=== PATIENT | female | born 1985 | race Two or more races ===

== ENCOUNTER 2018-06-02 19:16 | Emergency (ER) | payer OTHER ==
[~2018-06-02] VITALS: Ht 162.6 cm; Wt 86.2 kg
[2018-06-02 20:33] VITALS: BP 162/97
[2018-06-02 20:42] LABS: BASO % 0 % (0-3); EOS # 0.3 x10^3/uL (0.0-0.7); EOS % 2 % (0-3); HEMATOCRIT 42.7 % (36.0-47.0); HEMOGLOBIN 14.4 g/dL (12.0-15.5); LYMPH # 3.4 x10^3/uL (1.0-4.8); LYMPH % 29 % (24-48); MEAN CORPUSCULAR HEMOGLOBIN 30 pg (25-35); MEAN CORPUSCULAR HGB CONC 34 g/dL (31-37); MEAN CORPUSCULAR VOLUME 88 fL (79-100); MONO # 0.8 x10^3/uL (0.0-1.1); MONO % 7 % (0-9); NEUT # 7.4 x10^3uL (1.8-7.7); NEUT % 62 % (31-73); PLATELET COUNT 482 x10^3/uL (140-400); RED BLOOD COUNT 4.84 x10^6/uL (3.50-5.40); RED CELL DISTRIBUTION WIDTH 12.7 % (11.5-14.5); WHITE BLOOD COUNT 11.9 x10^3/uL (4.0-11.0)
[2018-06-02 20:54] LABS: CALCIUM 9.3 mg/dL (8.5-10.1); CREATININE 0.5 mg/dL (0.6-1.0); GFR 144.9; POTASSIUM 3.2 mmol/L (3.5-5.1)
[2018-06-02 21:00] LABS: ALBUMIN 4.3 g/dL (3.4-5.0); ALBUMIN/GLOBULIN RATIO 1.1 (1.0-1.7); TOTAL BILIRUBIN 0.4 mg/dL (0.2-1.0); TOTAL PROTEIN 8.3 g/dL (6.4-8.2)
--- NOTE | 2018-06-02 21:39 | RAD ---
CHEST AP ONLY Clinical History: CHEST PAIN Technique: AP view of the chest was obtained at 06/02/2018 9:12 PM. Comparison: None. Findings: The cardiomediastinal silhouette is normal. The pulmonary vasculature is normal. The lungs and pleural margins are clear. Impression: No evidence of an acute cardiopulmonary process. Electronically signed by: Toby Green III, MD (06/02/2018 9:36 PM) [id number]
[2018-06-02] MEDS ORDERED: TRIA1CAP PO (21:42)
--- NOTE | 2018-06-02 21:42 | PHYS DOC ---
Past Medical History Past Medical History: Hypertension Past Surgical History: No Surgical History Alcohol Use: Occasionally Drug Use: None Adult General Chief Complaint Chief Complaint: MULTIPLE COMPLAINTS HPI HPI Patient is a 32 year old -Thai female presents with multiple complaints. Patient states she has been hypertensive, blood pressure 160s over 90s for the past several weeks. Patient previously diagnosed with hypertension but has been off medications for the past 3 years. Patient also reports intermittent left-sided chest pain for the past several days. Denies chest pain currently. Reports significant chest pain episode 3 days ago. Fever, chills, nausea vomiting or sweats. No leg pain, swelling. No history of DVT or PE. Denies any symptoms at this time. Patient finished work this afternoon decided to get checked out.] Review of Systems Review of Systems History of symptoms as per history of present illness. All other review symptoms are negative. All other systems were reviewed and found to be within normal limits, except as documented in this note. Allergies Allergies Allergies Coded Allergies Type Severity Reaction Last Updated Verified red dye Allergy Intermediate 06/02/18 Yes Physical Exam Physical Exam Constitutional: Well developed, well nourished, no acute distress, non-toxic appearance. [] HENT: Normocephalic, atraumatic, bilateral external ears normal, oropharynx moist, no oral exudates, nose normal. [] Eyes: PERRLA, EOMI, conjunctiva normal, no discharge. [] Neck: Normal range of motion, no tenderness, supple, no stridor. [] Cardiovascular:Heart rate regular rhythm, no murmur [] Lungs & Thorax: Bilateral breath sounds clear to auscultation [] Abdomen: Bowel sounds normal, soft, no tenderness. [] Skin: Warm, dry, no erythema, no rash. [] Back: No tenderness, no CVA tenderness. [] Extremities: No tenderness, no edema. [] Neurologic: Alert and oriented X 3, normal motor function, normal sensory function, no focal deficits noted. [] Psychologic: Affect normal, judgement normal, mood normal. [] Current Patient Data Vital Signs Vital Signs Date Time Temp Pulse Resp B/P (MAP) Pulse Ox O2 Delivery O2 Flow Rate FiO2 06/02/18 19:25 98.3 93 18 180/105 (130) 97 Room Air 98.3 Lab Values Laboratory Tests Test 06/02/18 19:50 06/02/18 21:11 White Blood Count 11.9 x10^3/uL (4.0-11.0) H Red Blood Count 4.84 x10^6/uL (3.50-5.40) Hemoglobin 14.4 g/dL (12.0-15.5) Hematocrit 42.7 % (36.0-47.0) Mean Corpuscular Volume 88 fL (79-100) Mean Corpuscular Hemoglobin 30 pg (25-35) Mean Corpuscular Hemoglobin Concent 34 g/dL (31-37) Red Cell Distribution Width 12.7 % (11.5-14.5) Platelet Count 482 x10^3/uL (140-400) H Neutrophils (%) (Auto) 62 % (31-73) Lymphocytes (%) (Auto) 29 % (24-48) Monocytes (%) (Auto) 7 % (0-9) Eosinophils (%) (Auto) 2 % (0-3) Basophils (%) (Auto) 0 % (0-3) Neutrophils # (Auto) 7.4 x10^3uL (1.8-7.7) Lymphocytes # (Auto) 3.4 x10^3/uL (1.0-4.8) Monocytes # (Auto) 0.8 x10^3/uL (0.0-1.1) Eosinophils # (Auto) 0.3 x10^3/uL (0.0-0.7) Basophils # (Auto) 0.0 x10^3/uL (0.0-0.2) Sodium Level 139 mmol/L (136-145) Potassium Level 3.2 mmol/L (3.5-5.1) L Chloride Level 100 mmol/L (98-107) Carbon Dioxide Level 25 mmol/L (21-32) Anion Gap 14 (6-14) Blood Urea Nitrogen 11 mg/dL (7-20) Creatinine 0.5 mg/dL (0.6-1.0) L Estimated GFR (Cockcroft-Gault) 144.9 BUN/Creatinine Ratio 22 (6-20) H Glucose Level 104 mg/dL (70-99) H Calcium Level 9.3 mg/dL (8.5-10.1) Total Bilirubin 0.4 mg/dL (0.2-1.0) Aspartate Amino Transferase (AST) 23 U/L (15-37) Alanine Aminotransferase (ALT) 29 U/L (14-59) Alkaline Phosphatase 104 U/L (46-116) Troponin I Quantitative < 0.017 ng/mL (0.000-0.055) YC-Ljr-P-Type Natriuretic Peptide 46 pg/mL (0-124) Total Protein 8.3 g/dL (6.4-8.2) H Albumin 4.3 g/dL (3.4-5.0) Albumin/Globulin Ratio 1.1 (1.0-1.7) POC Urine HCG, Qualitative Hcg negative (Negative) Laboratory Tests 06/02/18 19:50 Laboratory Tests 06/02/18 19:50 EKG EKG [EKG: Reviewed] Radiology/Procedures Radiology/Procedures [Chest x-ray: No acute cardiopulmonary disease on preliminary ED review.] Course & Med Decision Making Course & Med Decision Making Pertinent Labs and Imaging studies reviewed. (See chart for details) [Atypical chest pain, elevated blood pressure. No acute findings on physical exam. Patient under significant stress. Lab work unremarkable with exception of hypokalemia. Potassium replaced. Patient remains hypertensive. Eleuterio previous blood pressure medications with instructions to follow-up with PCP for further evaluation. Return precautions reviewed.] Dragon Disclaimer Dragon Disclaimer This electronic medical record was generated, in whole or in part, using a voice recognition dictation system. Departure Departure Impression: Primary Impression: Chest pain Additional Impressions: Accelerated hypertension Hypokalemia Disposition: HOME, SELF-CARE Condition: GOOD Referrals: NO PCP (PCP) Patient Instructions: Chest Pain (Nonspecific), Hypertension, Jeld-id-Ehhd, Hypokalemia-Brief Additional Instructions: You were evaluated emergency department for chest pain and elevated blood pressure. EKG, lab and imaging studies were performed and are nondiagnostic with exception of a low potassium. Please pressure medication as directed and follow-up with local primary care physician. Return to the ED if new or worsening symptoms. Scripts Triamterene/Hydrochlorothiazid (DYAZIDE 37.5-25 CAPSULE) 1 Each Capsule 1 CAP PO DAILY, #30 CAP 3 Refills Prov: TONY RITCHIE DO 06/02/18 Problem Qualifiers TONY RITCHIE DO Jun 02, 2018 21:42
[2018-06-02] MEDS ORDERED: POTASSIUM CHLORIDE 20 MEQ TABLET.ER. PO ONE (22:00)
--- NOTE | 2018-06-03 09:37 | EKG ---
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
== END 2018-06-02 21:52 | disposition home or self-care (01) ==
LOC: ER 19:16
DX: I10 Essential (primary) hypertension (principal); R07.89 Other chest pain; E87.6 Hypokalemia; Z91.041 Radiographic dye allergy status
CPT/HCPCS: 36415; 71045; 80053; 81025; 83880; 84484; 85025; 93005; 99285-25

== ENCOUNTER 2018-11-09 17:54 | Emergency (ER) | payer OTHER ==
[~2018-11-09] VITALS: Ht 162.6 cm; Wt 86.2 kg
[~2018-11-09 17:54] MED LIST: TRIA1CAP PO
[2018-11-09 18:05] VITALS: BP 159/97
--- NOTE | 2018-11-09 19:41 | PHYS DOC ---
Past Medical History Past Medical History: Hypertension (BETHANY ARNOLD APRN) Past Surgical History: No Surgical History (BETHANY ARNOLD APRN) Alcohol Use: Occasionally Drug Use: Marijuana (BETHANY ARNOLD APRN) Adult General Chief Complaint Chief Complaint: NEEDLE STICK HPI HPI Patient is a 32 year old female who presents to the ED today to be evaluated after being stuck with a needle on the left pinky finger. 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 (BETHANY ARNOLD APRN) Review of Systems Review of Systems Constitutional: Denies fever or chills [] Musculoskeletal: Denies back pain or joint pain [] Integument: Reports needlestick to the left pinky finger Neurologic: Denies headache, focal weakness or sensory changes [] All other systems were reviewed and found to be within normal limits, except as documented in this note. (BETHANY ARNOLD APRN) Allergies Allergies Allergies Coded Allergies Type Severity Reaction Last Updated Verified red dye Allergy Intermediate 06/02/18 Yes (NILE BENOIT MD) Physical Exam Physical Exam Constitutional: Well developed, well nourished, no acute distress, non-toxic appearance. [] Skin: Warm, dry, and left lateral pinky finger proximal and with an area of bruising consistent with a needle stick. Back: No tenderness, no CVA tenderness. [] Extremities: No tenderness, no cyanosis, no clubbing, ROM intact, no edema. [] Neurologic: Alert and oriented X 3, normal motor function, normal sensory function, no focal deficits noted. [] Psychologic: Affect normal, judgement normal, mood normal. [] (BETHANY ARNOLD APRN) Current Patient Data Vital Signs Vital Signs Date Time Temp Pulse Resp B/P (MAP) Pulse Ox O2 Delivery O2 Flow Rate FiO2 11/09/18 18:05 98.4 70 14 159/97 (117) 94 Room Air 98.4 (NILE BENOIT MD) EKG EKG [] (BETHANY ARNOLD APRN) Radiology/Procedures Radiology/Procedures [] (BETHANY ARNOLD APRN) Course & Med Decision Making Course & Med Decision Making Pertinent Labs and Imaging studies reviewed. (See chart for details) This is a 32-year-old female patient who presents to the ED today with a needlestick to the left pinky finger that occurred today at [facility]. 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 (BETHANY ARNOLD APRN) Dragon Disclaimer Dragon Disclaimer This electronic medical record was generated, in whole or in part, using a voice recognition dictation system. (BETHANY ARNOLD APRN) Departure Departure Impression: Primary Impression: Needle stick injury of finger Disposition: HOME, SELF-CARE Condition: STABLE Referrals: NO PCP (PCP) Attending Signature I have participated in the care of this patient and I have reviewed and agree with all pertinent clinical information above including history, exam, and recommendations. (NILE BENOIT MD) Problem Qualifiers Primary Impression: Needle stick injury of finger Encounter type: initial encounter Qualified Codes: S61.239A - Puncture wound without foreign body of unspecified finger without damage to nail, initial encounter; W27.3XXA - Contact with needle (sewing), initial encounter BETHANY ARNOLD APRN Nov 09, 2018 19:41 NILE BENOIT MD Nov 09, 2018 19:45
== END 2018-11-09 19:24 | disposition left against medical advice (07) ==
LOC: ER 17:54
DX: S61.232A Puncture wound without foreign body of right middle finger without damage to nail, initial encounter (principal); I10 Essential (primary) hypertension; Z91.041 Radiographic dye allergy status; W27.3XXA Contact with needle (sewing), initial encounter; Y93.89 Activity, other specified; Y92.89 Other specified places as the place of occurrence of the external cause; Y99.8 Other external cause status
CPT/HCPCS: 99281

== ENCOUNTER → 2020-10-26 | Outpatient (CLI) | payer OTHER, MEDICAID ==
--- NOTE | 2020-10-26 16:47 | CARD ---
MR#: [id number] Date of Study: 10/26/2020 Ordering Physician: URMILA ECHEVARRIA, Referring Physician: URMILA ECHEVARRIA, Casi: Toby Momin [facility] APPROVED REPORT EXAM: Two-dimensional and M-mode echocardiogram with Doppler and color Doppler. Other Information Quality : FairHR: 66bpm Rhythm : NSR INDICATION Murmur RISK FACTORS Hypertension Obesity 2D DIMENSIONS Left Atrium(2D)4.1 (1.6-4.0cm)IVSd0.9 (0.7-1.1cm) Aortic Root(2D)2.8 (2.0-3.7cm)LVDd5.8 (3.9-5.9cm) LVOT Diameter2.1 (1.8-2.4cm)PWd0.8 (0.7-1.1cm) LVDs3.9 (2.5-4.0cm)FS (%) 32.8 % SV98.9 mlLVEF(%)60.5 (>50%) Aortic Valve AoV Peak Riki.135.7cm/sAoV VTI29.5cm AO Peak GR.7.4mmHgLVOT Peak Riki.114.2cm/s LVOT VTI 24.92cmAO Mean GR.4mmHg WES (VMAX)2.15ba0RAI (VTI)2.90cm2 Mitral Valve MV E Eixyvmru77.9cm/sMV DECEL LYUX224iz MV A Mfuvpwkm56.9cm/sMV XNW48wf E/A Ratio1.3MVA (PHT)5.56cm2 TDI E/Lateral E'6.0E/Medial E'7.4 Pulmonary Valve PV Peak Vmngziqe27.6cm/sPV Peak Grad.4mmHg Tricuspid Valve TR P. Mpyzzurl712bn/sTR Peak Gr.25mmHg Pulmonary Vein S1 Oqoulcgh54.9cm/sD2 Qyfrvlco00.1cm/s LEFT VENTRICLE The left ventricle is normal size. There is normal left ventricular wall thickness. The left ventricu lar systolic function is normal and the ejection fraction is within normal range. Ejection fraction o f 55 to 60%. There is normal LV segmental wall motion. No left ventricle thrombus noted on this study . There is no ventricular septal defect visualized. There is no left ventricular aneurysm. There is n o mass noted in the left ventricle. RIGHT VENTRICLE The right ventricle is normal size. There is normal right ventricular wall thickness. The right ventr icular systolic function is normal. ATRIA The left atrium is mildly dilated. The right atrium size is normal. The interatrial septum is intact with no evidence for an atrial septal defect or patent foramen ovale as noted on 2-D or Doppler imagi ng. AORTIC VALVE The aortic valve is probably trileaflet. Doppler and Color Flow revealed no significant aortic regurg itation. There is no significant aortic valvular stenosis. There is no aortic valvular vegetation. MITRAL VALVE The mitral valve is normal in structure and function. There is no evidence of mitral valve prolapse. Doppler and Color-flow revealed trace mitral regurgitation. TRICUSPID VALVE The tricuspid valve is normal in structure and function. Doppler and Color Flow revealed trace mild t ricuspid regurgitation. There is no tricuspid valve prolapse or vegetation. There is no tricuspid brianda ve stenosis. PULMONIC VALVE The pulmonary valve is normal in structure and function. Doppler and Color Flow revealed no pulmonic valvular regurgitation. There is no pulmonic valvular stenosis. GREAT VESSELS The aortic root is normal in size. The ascending aorta is normal in size. The pulmonary artery is nor mal. The IVC is normal in size and collapses >50% with inspiration. PERICARDIAL EFFUSION There is no pleural effusion. There is no evidence of significant pericardial effusion. Critical Notification Critical Value: No <Conclusion> The left ventricle is normal size. The left ventricular systolic function is normal and the ejection fraction is within normal range. Ejection fraction of 55 to 60%. There is normal left ventricular wall thickness. Doppler and Color Flow revealed no significant aortic regurgitation. There is no significant aortic valvular stenosis. Doppler and Color-flow revealed trace mitral regurgitation. Doppler and Color Flow revealed trace mild tricuspid regurgitation. Signed by : Dk Jurado MD Electronically Approved : 10/26/2020 16:46:44
== END ==
LOC: ECHO 13:48
PROVIDERS: ATTEND Internal Medicine
DX: I36.1 Nonrheumatic tricuspid (valve) insufficiency (principal); I10 Essential (primary) hypertension; F10.21 Alcohol dependence, in remission; R10.11 Right upper quadrant pain
CPT/HCPCS: 93306

== ENCOUNTER → 2020-11-01 | Outpatient (CLI) | payer MEDICAID, OTHER ==
--- NOTE | 2020-11-01 08:35 | RAD ---
EXAM: ULTRASOUND ABDOMEN LIMITED CLINICAL HISTORY: Reason: RUQ PAIN, HISTORY OF ALCOHOLISM / Spl. Instructions: / History: COMPARISON: None available. TECHNIQUE: Limited ultrasound examination of the right upper quadrant of the abdomen was performed. FINDINGS: The liver is normal in size. There is hepatic steatosis. No focal hepatic lesion is seen. The gallbla dder is unremarkable. The common bile duct is normal in caliber. The right kidney is normal in size. There is no solid or cystic renal lesion. There is no hydronephrosis. The pancreas is obscured due to bowel gas and body habitus. The inferior vena cava is patent. The aorta is not formally assessed. IMPRESSION: 1. Hepatic steatosis. 2. No acute sonographic finding. Electronically signed by: Emma Duran MD (11/01/2020 8:33 AM) [id number]
== END ==
LOC: US 07:37
PROVIDERS: ATTEND Internal Medicine
DX: F10.21 Alcohol dependence, in remission (principal); R10.11 Right upper quadrant pain
CPT/HCPCS: 76705